=== PATIENT | female | born 1995 | race Caucasian/White ===

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

== ENCOUNTER 2017-03-29 15:59 | Emergency (ER) | payer MEDICAID ==
[~2017-03-29] VITALS: Ht 152.4 cm; Wt 61.2 kg
[2017-03-29 17:11] VITALS: BP 116/62
== END 2017-03-29 17:11 | disposition home or self-care (01) ==
LOC: ED 15:59
DX: L03.012 Cellulitis of left finger (principal)

== ENCOUNTER 2017-10-23 22:17 | Emergency (ER) | payer MEDICAID ==
[~2017-10-23] VITALS: Ht 152.4 cm; Wt 64.4 kg
[2017-10-23 22:25] VITALS: Ht 152.4 cm; Wt 64.4 kg
[2017-10-24 01:25] LABS: BASOPHIL % 0.2 % (0-2); PLATELET COUNT 214 x10^3mcL (130-400); RED CELL DISTRIBUTION WIDTH 13.3 % (11.5-14.5)
[2017-10-24 01:45] LABS: CALCIUM 8.4 mg/dL (8.5-10.1); CARBON DIOXIDE 23.6 mmol/L (21-32); CHLORIDE SERUM 104 mmol/L (98-107); CREATININE SERUM 0.6 mg/dL (0.6-1.0); GFR1 > 60 mL/min; GLUCOSE SERUM 99 mg/dL (74-106); POTASSIUM SERUM 3.7 mmol/L (3.5-5.1); SODIUM SERUM 134 mmol/L (136-145)
[2017-10-24 01:57] LABS: ALBUMIN 3.4 g/dL (3.4-5.0); ALKALINE PHOSPHATASE 75 U/L (46-116); ALT/SGPT 17 U/L (14-59); AST/SGOT 25 U/L (15-37); BILIRUBIN TOTAL 0.32 mg/dL (0.20-1.00); TOTAL PROTEIN, SERUM 7.3 g/dL (6.4-8.2)
[2017-10-24 02:17] VITALS: BP 112/76
== END 2017-10-24 02:17 | disposition home or self-care (01) ==
LOC: ED 22:17
PROVIDERS: Emergency Medicine
DX: R53.1 Weakness (principal); M79.1 Myalgia; R51 Headache
CPT/HCPCS: 36415